=== PATIENT | male | born 1965 | race African-American/Black ===

== ENCOUNTER 2016-07-17 13:44 | Emergency (ER) | payer SELFPAY ==
[2016-07-17 14:16] LABS: BASOPHILS 0.6 %; BASOPHILS ABSOLUTE 0.05 10/3/uL (0.0-0.16); EOSINOPHILS ABSOLUTE 0.09 10/3/uL (0.0-0.53); ER CBC TAT 0 Hrs 10 Mins; HEMATOCRIT 43.3 % (40.0-51.0); HEMOGLOBIN 14.9 g/dL (13.6-17.8); IMMATURE GRANULOCYTES 0.1 %; IMMATURE GRANULOCYTES ABSOLUTE 0.01 10/3/uL (0.0-0.11); LYMPHOCYTES 31.2 %; LYMPHOCYTES ABSOLUTE 2.72 10/3/uL (0.67-4.30); MEAN CORPUS HGB CONC 34.4 g/dL (32.0-36.0); MEAN CORPUSCULAR HEMOGLOB 31.9 pg (26.0-34.0); MEAN PLATELET VOLUME 11.8 fL (9.2-13.0); MONOCYTES 4.8 %; MONOCYTES ABSOLUTE 0.42 10/3/uL (0.21-1.20); NEUTROPHILS 62.3 %; NEUTROPHILS ABSOLUTE 5.43 10/3/uL (2.02-8.40); PLATELET COUNT 173 10/3/uL (150-400); RBC DISTRIBUTION WIDTH 13.3 % (12.0-16.0); RED CELL COUNT 4.67 10/6/uL (4.7-6.1); WHITE BLOOD CELLS 8.7 10/3/uL (4.5-10.5)
[2016-07-17 14:18] LABS: MANUAL DIFF NO %; MEAN CORPUSCULAR VOLUME 92.7 fL (80-100)
[2016-07-17 14:23] LABS: PARTIAL THROMBO TIME 26.2 SEC (22.5-37.2)
[2016-07-17 14:24] LABS: PROTIME (NOT ORD) 13.5 SEC (12.0-14.5)
[2016-07-17 14:31] LABS: A/G RATIO 0.8 (0.7-1.9); ALBUMIN 3.4 G/DL (3.5-5.0); BUN (BLOOD UREA NITROGEN) 11 MG/DL (6-23); CHLORIDE, SERUM 106 MMOL/L (96-112); CREATININE 1.18 MG/DL (0.70-1.30); GFR AFRICAN AMERICAN 82 ML/MIN (>=60); GFR NON AFRICAN AMERICAN 71 ML/MIN (>=60); GLOBULIN 4.1 G/DL (2.5-4.1); POTASSIUM, SERUM 4.1 MMOL/L (3.5-5.3); SGOT(AST) 10 U/L (5-40); SGPT(ALT) 27 U/L (5-65); SODIUM, SERUM 142 MMOL/L (135-148); TOTAL BILIRUBIN 0.5 MG/DL (0-1.2); TOTAL PROTEIN 7.5 G/DL (6.0-8.5)
[2016-07-17 14:33] LABS: ALKALINE PHOSPHATASE 122 U/L (45-117); CO2 (CARBON DIOXIDE) 29 MMOL/L (24-34); GLUCOSE, SERUM 282 MG/DL (60-99)
== END 2016-07-17 18:25 | disposition left against medical advice (07) ==
LOC: ER 13:44
PROVIDERS: Emergency Medicine
DX: R10.31 Right lower quadrant pain (principal); F17.200 Nicotine dependence, unspecified, uncomplicated
CPT/HCPCS: 36415; 80053; 85025; 85610; 85730; 86850; 86900; 86901; 93005; 96374; 99284; J1885